=== PATIENT | female | born 1950 | race Caucasian/White ===

== ENCOUNTER 2020-02-28 08:44 | Emergency (ER) | payer OTHER ==
[~2020-02-28] VITALS: Ht 152.4 cm; Wt 57.2 kg
[~2020-02-28 08:44] MED LIST: CADUET; DIOVAN
[2020-02-28] MEDS ORDERED: IRBESARTAN-HCT1 EACH (08:56)
== END 2020-02-28 11:07 | disposition home or self-care (01) ==
LOC: ER 08:44
DX: S52.611A Displaced fracture of right ulna styloid process, initial encounter for closed fracture (principal); W18.09XA Striking against other object with subsequent fall, initial encounter; Y93.89 Activity, other specified; Y92.89 Other specified places as the place of occurrence of the external cause; Y99.8 Other external cause status

== ENCOUNTER 2023-03-25 16:05 | Emergency (ER) | payer OTHER ==
[~2023-03-25] VITALS: Ht 152.4 cm; Wt 52.6 kg
[~2023-03-25 16:05] MED LIST changes: +IRBESARTAN-HCT1 EACH
[2023-03-25] MEDS ORDERED: LOSARTAN-HCTZ1 EACH PO (16:30)
== END 2023-03-25 19:10 | disposition home or self-care (01) ==
LOC: ER 16:05
DX: U07.1 COVID-19 (principal)